=== PATIENT | male | born 1995 ===

== ENCOUNTER 2016-10-19 19:52 | Emergency (ER) | payer MEDICAID ==
--- NOTE | 2016-10-19 21:07 | C.PDOC ---
History Of Present Illness 21 yo male w/o significant PMHx come in for evaluation of bodyaches, chills, sore throat gradually worsen for past 5 days. Pt sts, " unable to swallow for past few days, its very painful". Pt admits, [place] Amoxicillin for 2 days [place]" without significant improvement. Otherwise, pt denies high fever, headache, dizziness, neck pain, drooling, dyspnea, SOB, cough, wheezing, abd. pain, N/V/D, back pain, UTI sx, denies recent travel or known sick contact. Ambulate to Ed for evaluation, not in any apparent distress. Time Seen by Provider: 10/19/16 20:46 Chief Complaint (Nursing): ENT Problem History Per: Patient, Family Onset/Duration Of Symptoms: Gradual Past Medical History Reviewed: Historical Data, Nursing Documentation, Vital Signs Vital Signs: Last Vital Signs Temp 98.9 F 10/19/16 22:29 Pulse 71 10/19/16 22:29 Resp 18 10/19/16 22:29 BP 113/70 10/19/16 22:29 Pulse Ox 100 10/19/16 22:29 - Medical History PMH: No Chronic Diseases Surgical History: No Surg Hx Family History: States: No Known Family Hx - Social History Hx Alcohol Use: No Hx Substance Use: No - Immunization History Hx Tetanus Toxoid Vaccination: No Hx Influenza Vaccination: No Hx Pneumococcal Vaccination: No Review Of Systems Except As Marked, All Systems Reviewed And Found Negative. Constitutional: Positive for: Chills. Negative for: Fever ENT: Positive for: Nose Discharge, Nose Congestion, Throat Pain, Throat Swelling. Negative for: Ear Discharge Cardiovascular: Negative for: Chest Pain Respiratory: Negative for: Cough, Shortness of Breath, Wheezing Gastrointestinal: Negative for: Nausea, Vomiting, Abdominal Pain, Diarrhea Genitourinary: Negative for: Dysuria, Frequency, Incontinence Musculoskeletal: Negative for: Neck Pain, Back Pain Skin: Negative for: Rash Neurological: Negative for: Weakness, Numbness, Altered Mental Status, Headache , Dizziness Physical Exam - Physical Exam Appears: Well, Non-toxic, No Acute Distress Skin: Normal Color, Warm, Dry, No Rash Eye(s): bilateral: PERRL Ear(s): Bilateral: Normal Nose: No Flaring, No Discharge Oral Mucosa: Moist, No Drooling, No Trismus Throat: Erythema (B/L), Exudate (Right with mod tonsillar enlargement), No Drooling, Other (uvula midline, no edema.) Neck: Supple, Other ((-) meningeal sign) Lymphatic: Adenopathy (B/L R>L submandibular) Cardiovascular: Rhythm Regular Respiratory: No Decreased Breath Sounds, No Accessory Muscle Use, No Rales, No Rhonchi, No Stridor, No Wheezing Gastrointestinal/Abdominal: Soft, No Tenderness, No Distention, No Guarding Back: No CVA Tenderness Extremity: Normal ROM, No Pedal Edema Neurological/Psych: Oriented x3, Normal Speech ED Course And Treatment - Laboratory Results Result Diagrams: 10/19/16 21:25 10/19/16 21:25 Lab Interpretation: No Acute Changes O2 Sat by Pulse Oximetry: 98 Pulse Ox Interpretation: Normal Progress Note: On re-evaluation, pt is afebrile, hemodynamicaly stable. non- toxic. Tolerate po well in ED. Pt sts, " feel much better now". PulseOx 100% RA. Neck: Supple, (-) meningeal sign. ENT: (+) acute tonsillitis, uvula midline, no edema. Lungs: CTA B/L, BS equal B/L. CVS: (+)S1S2, reg. Abd: Benign. back: (-) CVA tenderness. Neuorlogicaly intact. Blood work review and appears withou acute abnormalities. [place] (-). Pt advised. ref. to f/u with ENT in 2-3 days for re-eval. return to ED if any worsening or new changes. Disposition Counseled Patient/Family Regarding: Studies Performed, Diagnosis, Need For Followup, Rx Given - Disposition Referrals: [facility] [Outside] Disposition: HOME/ ROUTINE Disposition Time: 22:40 Condition: STABLE Additional Instructions: Encourage fluids take medication as prescribed Follow up with PMD, ENT in 2-3 days for re-evaluation. Return to ED if any worsening or new changes. Prescriptions: Clindamycin [Cleocin] 300 mg PO Q6 #28 cap Prednisone [Deltasone] 40 mg PO DAILY #6 tablet Instructions: Tonsillitis (ED) Forms: Proficiency (Kinyarwanda) Print Language: GERMAN - Clinical Impression Clinical Impression: Tonsillitis
[2016-10-19] MEDS ORDERED: Clindamycin 300 MG in Sodium Chloride 0.9% 50 ML IVPB STA (21:08)
[2016-10-19] MEDS ORDERED: Sodium Chloride 0.9% 1,000 ML IV ONE (21:08)
[2016-10-19] MEDS ORDERED: Sodium Chloride 0.9% 1,000 ML ONE (21:24)
[2016-10-19 21:29] LABS: BASO # 0.1 K/uL (0.0-0.2); BASO % 0.7 % (0.0-2.0); EOS # 0.1 K/uL (0.0-0.7); EOS % 0.4 % (0.0-4.0); LYMPH # 2.5 K/uL (1.0-4.3); LYMPH % 21.4 % (20.0-40.0); MEAN CELL VOLUME 72.3 fL (80.0-94.0); MEAN CORPUSCULAR HEMOGLOBIN 23.1 pg (27.0-31.0); MEAN PLATELET VOLUME 7.1 fL (7.2-11.7); MONO # 1.9 K/uL (0.0-0.8); MONO % 16.3 % (0.0-10.0); RED CELL DISTRIBUTION WIDTH 14.4 % (11.5-14.5); WHITE BLOOD COUNT 11.7 K/uL (4.8-10.8)
[2016-10-19 21:35] LABS: RBC URINE 1 /hpf (0-3); URINE BILIRUBIN NEGATIVE (NEGATIVE); URINE COLOR Yellow (YELLOW); URINE GLUCOSE (UA) NORMAL (Normal); URINE KETONE NEGATIVE (NEGATIVE); URINE LEUKOCYTE ESTERASE NEG Leu/uL (Negative); URINE PROTEIN NEGATIVE (NEGATIVE); URINE UROBILINOGEN NORMAL mg/dL (0.2-1.0); WBC URINE < 1 /hpf (0-5)
[2016-10-19 21:36] LABS: CHLORIDE 98 mmol/L (98-107)
[2016-10-19 21:37] LABS: POTASSIUM 3.9 mmol/L (3.6-5.2); SODIUM 137 mmol/L (132-148)
[2016-10-19 21:39] LABS: GFR AFRICAN-AMERICAN > 60; URINE BLOOD TRACE (NEGATIVE)
[2016-10-19 21:40] LABS: BLOOD UREA NITROGEN 12 mg/dL (9-20); CALCIUM 9.4 mg/dl (8.6-10.4); CARBON DIOXIDE 28 mmol/L (22-30); GLUCOSE,RANDOM 92 mg/dL (75-110)
[2016-10-19 22:29] VITALS: BP 113/70; PULSE 71; RESP 18; TEMP 98.9
[2016-10-19 23:01] VITALS: O2SAT 98
== END 2016-10-19 23:09 | disposition home or self-care (01) ==
LOC: C.ER 19:52
DX: J03.90 Acute tonsillitis, unspecified (principal)
CPT/HCPCS: 80048; 81001; 85025; 86308; 87040; 96365; 96375; 99284; J1885; J2930; J7040